=== PATIENT | male | born 1945 | race Caucasian/White ===

== ENCOUNTER → 2019-08-27 15:38 | Outpatient (CLI) | payer MEDICARE, OTHER, SELFPAY ==
--- NOTE | 2019-08-27 | DI.MRI.S_ITS ---
PROCEDURE: MR LUMBAR SPINE WO CON INDICATIONS: RADICULOPATH TECHNIQUE: Noncontrast sagittal T1 spin echo and T2 fast echo, sagittal STIR, axial T1 and T2 fast spin echo through the lumbar spine. In cases with scoliosis, additional coronal T2 fast spin echo may be performed. COMPARISON: [facility] [place] [facility], CR, XR LUMBAR SPINE FLEXION EXTENSION, 08/13/2019, 16:32. [facility], CR, XR LUMBAR SPINE 2 OR 3 VIEWS, 07/02/2019, 13:15. FINDINGS: Image quality: Excellent. Alignment and Curvature: There is grade 1 anterolisthesis of L5 on S1 measuring 6 mm. There is trace retrolisthesis of L1 on L2. Bone Marrow: Marrow is of normal overall signal. Schmorl's nodes are noted along the inferior endplates of T12, L1 and L5 as well as superior endplate of L2, L3 and L4. Moderate reactive endplate changes are present at L5-S1, minimal at L1-L2, L2-3, L3-4 and L4-5. No acute vertebral body compression fractures. Spinal Cord: Conus medullaris terminates at the L2 level. Visualized cord demonstrates normal signal and size. Paraspinous Soft Tissues: No paravertebral masses. Discs: Moderate to severe desiccation is present throughout the lumbar spine most severe at L5-S1. L1-L2: Minimal disc bulge without spinal stenosis. Mild bilateral foraminal narrowing with facet and ligamentum flavum hypertrophy. L2-L3: Mild disc bulge including a left foraminal component. There is hfkd-lq-pqokzprx spinal stenosis. Moderate to severe left and moderate right foraminal narrowing with facet and ligamentum flavum hypertrophy. L3-L4: Mild disc bulge including a left lateral/foraminal component. Minimal to mild spinal stenosis. Severe left and moderate to severe right foraminal narrowing with facet and ligamentum flavum hypertrophy. L4-L5: Mild disc bulge with superimposed protrusion/extrusion in the left posterior paracentral location. In addition, prominent area of ligamentum flavum hypertrophy is noted along the anterior aspect of the right facet joint, projecting to the proximal right foraminal. There is mild compromise of the left lateral recess. There is severe right foraminal narrowing with nerve root compression as well as mild to moderate left foraminal narrowing. L5-S1: Mild disc bulge without spinal stenosis. Severe bilateral foraminal narrowing with nerve root flattening, right greater than left. Facet hypertrophy is present. IMPRESSION: 1. Significant multilevel degenerative changes. 2. Severe foraminal narrowing is present from L3-4 through L5-S1 secondary to anterolisthesis as well as facet/ligamentum flavum arthropathy as above. Dictated by: Erma Hanson M.D. on 08/27/2019 at 17:30 Approved by: Erma Hanson M.D. on 08/27/2019 at 17:36
== END ==
PROVIDERS: Referring Provider Orthopaedic Surgery; Visit Provider Orthopaedic Surgery
DX: M47.26 Other spondylosis with radiculopathy, lumbar region (principal); M47.27 Other spondylosis with radiculopathy, lumbosacral region; M48.061 Spinal stenosis, lumbar region without neurogenic claudication; M48.07 Spinal stenosis, lumbosacral region; M43.17 Spondylolisthesis, lumbosacral region
CPT/HCPCS: 72148

== ENCOUNTER → 2020-01-06 10:37 | Outpatient (CLI) | payer MEDICARE, OTHER, SELFPAY ==
--- NOTE | 2020-01-06 11:24 | DI.CT.S_ITS ---
PROCEDURE: CT LUMBAR SPINE WO CON INDICATIONS: Radiculopathy, lumbar region TECHNIQUE: Noncontrast 3 mm thick sections acquired from the T12 level to the sacrum. Sagittal and coronal reformats were constructed. For radiation dose reduction, the following was used: automated exposure control. COMPARISON: [facility], CR, XR LUMBAR SPINE 2 OR 3 VIEWS, 07/02/2019, 13:15. [facility], MR, MR LUMBAR SPINE WO CON, 08/27/2019, 16:02. FINDINGS: Image quality: Excellent. Bones: No acute vertebral body compression fractures. Several Schmorl's nodes can be seen at the endplates. No suspicious lytic or blastic bony lesions. Mild dextroconvex scoliotic curvature is seen. Grade 1 anterolisthesis is seen at the L5-S1 level. Bilateral L5 pars defects are seen. T12-L1: Moderate loss of disc height is seen. Mild to moderate disc bulge is seen. No significant neural foraminal or central canal narrowing can be seen. L1-L2: The disc height is well preserved. Mild generalized disc bulge is seen. Mild bilateral neural foraminal narrowing is seen. No significant central canal narrowing is seen. L2-L3: The disc height is well preserved. Moderate disc bulge is seen, which is eccentric to the left. There is moderate left-sided and htsc-kq-pfyonlit right-sided neural foraminal narrowing seen. Moderate central canal narrowing is seen. L3-L4: The disc height is relatively well preserved. Moderate generalized disc bulge is seen. Relatively prominent bridging anterior osteophytes are seen. There is at least moderate bilateral neural foraminal narrowing seen. Moderate to severe central canal narrowing is seen. Apparent remote left hemilaminotomy can be seen. Please correlate with patient history. L4-L5: The disc height is well preserved. Vacuum disc phenomenon is seen at this level. At least moderate disc bulge is seen, which is eccentric to the right. There is moderate to prominent bilateral neural foraminal narrowing seen, right worse than left. Moderate to severe central canal narrowing is also seen. Postoperative change is seen at this level, with prior left hemilaminotomy. L5-S1: Moderate to severe loss of disc height is seen. Vacuum disc phenomenon is seen at this level. Endplate irregularity and sclerosis can be seen. Moderate generalized disc bulge is seen. Moderate to severe bilateral neural foraminal narrowing can be seen. Mild central canal narrowing is seen. Soft tissues: No retroperitoneal masses or hematomas. Visualized aorta is normal in caliber. Atherosclerotic calcification is noted. Partial calcification of the right adrenal gland can be seen. There is a right adrenal nodule seen that measures 2.3 cm and -7 Hounsfield units. IMPRESSION: Multiple levels of relatively prominent lumbar spine degenerative change are seen. At L5-S1, there is grade 1 anterolisthesis, with associated bilateral pars defects. Moderate to severe bilateral neural foraminal narrowing can be seen at this level. The degenerative changes are similar to the recent prior lumbar CT. 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 on 01/06/2020 at 10:57 Approved by: Sánchez Curran M.D. on 01/06/2020 at 11:03
== END ==
PROVIDERS: Referring Provider Neurological Surgery; Visit Provider Neurological Surgery
DX: M47.26 Other spondylosis with radiculopathy, lumbar region (principal); M43.16 Spondylolisthesis, lumbar region; M48.07 Spinal stenosis, lumbosacral region; D35.01 Benign neoplasm of right adrenal gland; E27.49 Other adrenocortical insufficiency
CPT/HCPCS: 72131

== ENCOUNTER → 2020-02-03 11:07 | Outpatient (CLI) | payer MEDICARE, OTHER, SELFPAY ==
[2020-02-03 13:03] LABS: Hemoglobin A1C% w Est Avg Glu 6.9 % (4.0-6.0)
[2020-02-03 13:49] LABS: Add Manual Diff / Slide Review NO; Basophils Absolute Auto 100 /uL (0-100); Basophils Percent Auto 0.7 % (0-2); Eosinophils Absolute Auto 300 /uL (0-450); Hematocrit 44.2 % (41-53); Lymphocytes Absolute Auto 2400 /uL (1100-4500); Mean Corpuscular HGB Conc 33.9 % (30-36); Mean Corpuscular Hemoglobin 30.2 PG (26-34); Mean Corpuscular Volume 89.1 fL (80-100); Monocytes Absolute Auto 500 /uL (0-900); Monocytes Percent Auto 6.3 % (3-14); Neutrophils Absolute Auto 5000 /uL (1500-7000); Platelet Count 208 X10^3/uL (150-400); Red Blood Cell Count 4.96 X10^6/uL (4.5-5.9); Red Cell Distribution Width 12.7 % (11.6-14.8); White Blood Cell Count 8.4 X10^3/uL (4.5-11.0)
[2020-02-03 14:05] LABS: Alanine Aminotransferase 13 IU/L (<50); Albumin 4.3 g/dL (3.5-5.0); Albumin Globulin Ratio 1.6 (1.0-2.8); Alkaline Phosphatase 70 U/L (38-126); Aspartate Aminotransferase 23 IU/L (17-59); Bilirubin Total 0.7 mg/dL (0.2-1.3); Blood Urea Nitrogen 22 mg/dL (9-20); Carbon Dioxide 29 mmol/L (22-32); Chloride 102 mmol/L (98-107); Estimated Glomerular Filt Rate > 60.0 mL/min (>60); Globulin 2.7 g/dL (1.7-4.1); Glucose 154 mg/dL (80-110); HEMOLYSIS < 15 (0-50); Potassium 4.6 mmol/L (3.4-5.1); Sodium 136 mmol/L (137-145)
[2020-02-03 14:36] LABS: Prostate Specific Antigen < 0.064 ng/mL (0.10-4.00)
== END ==
PROVIDERS: PCP Nurse Practitioner Family; Referring Provider Neurological Surgery; Visit Provider Neurological Surgery
DX: Z01.812 Encounter for preprocedural laboratory examination; C61 Malignant neoplasm of prostate; E11.9 Type 2 diabetes mellitus without complications
CPT/HCPCS: 36415; 80053; 83036; 84153; 85025

== ENCOUNTER → 2020-03-29 13:29 | Outpatient (CLI) | payer MEDICARE, OTHER, SELFPAY ==
[2020-03-29 16:26] LABS: COVID19 -Nasal RAPID Negative (Negative)
== END ==
PROVIDERS: PCP Nurse Practitioner Family; Visit Provider Physician Assistant
DX: Z01.812 Encounter for preprocedural laboratory examination (principal); Z20.822 Contact with and (suspected) exposure to COVID-19
CPT/HCPCS: 87635; C9803

== ENCOUNTER 2020-03-31 12:14 | Day surgery (SDC) | payer MEDICARE, OTHER, SELFPAY ==
--- NOTE | 2020-03-31 | PATH_ITS ---
[facility] Accession Number: [id number] . 01 Material submitted: . esophagus - DISTAL ESOPHAGUS . 01 Clinical history: . A: R/O KAY'S . 02 Diagnosis: Distal Esophagus: Squamocolumnar junctional mucosa with patchy regions of mildly increased intraepithelial eosinophils (up to approximately 11 per high-power field). Please see comment. Negative for intestinal metaplasia by alcian blue stain. Negative for dysplasia and malignancy. MRV 04/05/2020 1449 Local . 02 Comment: In the proper clinical setting, the histopathologic appearance would support a clinical impression of drug reaction, gastroesophageal reflux, and food allergies. . 02 Electronically signed: . Alla Kimbrough MD, Pathologist NPI- [id number] . 01 Gross description: . DISTAL ESOPHAGUS: Received in formalin is 1 fragment(s) of almeida, soft tissue measuring 0.1 x 0.1 x 0.1 cm submitted entirely in 1 cassette(s) /SAMANTHA 04/01/2020 1927 Local . 02 Pathologist provided ICD-10: K20.90 . 02 CPT . 861608, [id number] Performed at: 01 [facility] [address], [place], [place] [id number] MD Roberto Grove MD Phone: [phone] Performed at: 02 [facility] [address] [place], [place] [id number] MD Charity Chong MD Phone: [phone]
[2020-03-31 12:40] VITALS: BP 179/85; PULSE 63; RESP 18; TEMP 36.8; O2SAT 99; BMI 26.1
[2020-03-31] MEDS: fentaNYL 250 MCG/5 ML INJ IV (13:42)
[2020-03-31] MEDS: MIDAZOLAM 5 MG/5 ML VIAL IV (13:49)
--- NOTE | 2020-03-31 13:57 | PM.PREOP ---
Pre-operative Note COVID-19 COVID-19 status: Negative Interval Note History & Physical reviewed/Exam performed by Physician: Yes Changes to H&P: No ASA Class (for procedural sedation): II
--- NOTE | 2020-03-31 13:58 | PM.OP.ENDO ---
Operative Date/Time/Diagnoses Date of procedure: 03/31/20 Pre-op diagnosis: See indication and findings Procedure & Clinicians Study performed: EGD with possible dilation Same procedure as scheduled: Yes Indications: Dysphagia Surgeon: Mook Alvarez Procedure Notes Procedure in detail: After informed consent was obtained the patient was placed in left lateral decubitus position. The video upper scope placed into the oropharynx and with the patient's help swallowed into the esophagus. The esophagus, stomach, duodenum were carefully examined. On withdrawal, retroflexed view of the GE junction was performed. The scope was removed. The patient of the procedure well. Blood loss none Complications none Sedation Total sedation time 11 minutes Fentanyl 100 mg Versed 5 mg IV titration Findings 1. Distal esophagus with 2 small tongues of tissue coming up above the squamocolumnar junction/gastric folds less than 1 cm. Both were biopsied to rule out Edwards's. 2. Mild Schatzki's ring present. This was dilated to [address] [place] 3. Normal stomach 4. Normal duodenal bulb and sweep We will merely see how GRE dozen will send the results of his biopsies. This is present he should have follow-up in 3 years.
[2020-03-31 13:59] VITALS: BP 111/56; PULSE 49; RESP 12; TEMP 36.8; O2SAT 97
[2020-03-31 14:04] VITALS: BP 111/57; PULSE 49; RESP 9; O2SAT 97
[2020-03-31 14:08] VITALS: BP 108/57; PULSE 50; RESP 12; O2SAT 97
[2020-03-31 14:27] VITALS: BP 120/64; PULSE 53; RESP 14; TEMP 36.9; O2SAT 99
[2020-03-31 14:55] VITALS: BP 118/56; PULSE 56; RESP 16; TEMP 37.1; O2SAT 99
== END 2020-03-31 15:05 | disposition home or self-care (01) ==
PROVIDERS: PCP Nurse Practitioner Family; Referring Provider Nurse Practitioner Family; Visit Provider Internal Medicine Gastroenterology
PROC: 0DJ08ZZ Inspection of Upper Intestinal Tract, Via Natural or Artificial Opening Endoscopic (ICD-10-PCS; CPT 43235; principal; 2020-03-31 13:30)
DX: K22.2 Esophageal obstruction (principal); E11.9 Type 2 diabetes mellitus without complications; E03.9 Hypothyroidism, unspecified; Z79.84 Long term (current) use of oral hypoglycemic drugs; K20.90 Esophagitis, unspecified without bleeding
CPT/HCPCS: 43239; J2250; J3010

== ENCOUNTER → 2020-08-26 13:51 | Outpatient (CLI) | payer MEDICARE, OTHER, SELFPAY ==
--- NOTE | 2020-08-26 13:52 | DI.MRI.S_ITS ---
PROCEDURE: MR CERVICAL SPINE WO CON INDICATIONS: Other spondylosis Occlusion and stenosis TECHNIQUE: Noncontrast sagittal T1 spin echo and T2 fast spin echo, sagittal STIR, foraminal oblique sagittal T2 fast spin echo, and axial gradient echo or T2 fast spin echo through the cervical spine. COMPARISON: [facility], CR, XR CERVICAL SPINE 2 OR 3 VIEWS, 08/13/2020, 15:16. FINDINGS: Image quality: Excellent. Alignment and Curvature: There is normal bony alignment. Bone Marrow: Reactive endplate changes noted adjacent to the C5-C6 and C6-C7 discs. Spinal Cord: Visualized spinal cord has normal size and signal. No cerebellar tonsillar herniation. Paraspinous Soft Tissues: No paravertebral masses. Prevertebral soft tissues are normal in thickness. C2-C3: Loss of disc signal. No central stenosis. Mild bilateral facet hypertrophy. Mild bilateral neural foraminal narrowing. No neural compression. C3-C4: Loss of disc signal and slight loss of disc height. Mild, diffuse disc bulge. Gtll-vq-yyimaany narrowing of the central canal. Moderate right and mild left facet hypertrophy. Severe bilateral neural foraminal narrowing with compression of the exiting C4 nerve roots. C4-C5: Loss of disc signal. Mild bilateral facet hypertrophy. No central stenosis. Moderate bilateral neural foraminal narrowing. No neural compression. C5-C6: Loss of disc signal and height. Mild to moderate diffuse disc bulge. Mild bilateral facet hypertrophy. Moderate to severe narrowing of the central canal. Mild bilateral facet hypertrophy. Moderate bilateral uncovertebral joint hypertrophy. Severe bilateral neural foraminal narrowing with compression of the exiting C6 nerve roots. C6-C7: Loss of signal and height. Moderate, diffuse disc bulge. Moderate narrowing of the central canal. Mild bilateral facet hypertrophy. Moderate bilateral uncovertebral joint hypertrophy. Severe bilateral neural foraminal narrowing with compression of the exiting C7 nerve roots. C7-T1: Loss of disc signal. Mild, diffuse disc bulge. No central stenosis. No neural foraminal narrowing. No neural compression. IMPRESSION: 1. Multilevel degenerative disc disease. 2. Multilevel facet and uncovertebral arthropathy. 3. Moderate to severe C5-C6 central canal narrowing. 4. Severe bilateral C3-C4, C5-C6 and C6-C7 neural foraminal narrowing with compression of the exiting bilateral C4, C6 and C7 nerve roots. Dictated by: Bettina Cochran MD, PhD on 08/26/2020 at 15:06 Approved by: Bettina Cochran MD, PhD on 08/26/2020 at 15:23
--- NOTE | 2020-08-26 13:53 | DI.US.S_ITS ---
PROCEDURE: US CAROTID DOPPLER BI INDICATIONS: STENOSIS TECHNIQUE: Color and pulse Doppler interrogation was performed of both carotid systems, with image documentation and velocity measurements. COMPARISON: None. FINDINGS: Stenosis calculations are based on SRU (Society of Radiologists in Ultrasound) criteria. Right side: Brachial blood pressure: 141/61 mm Hg. Common carotid artery peak systolic velocity: 92 cm/sec. Internal carotid artery peak systolic velocity: 101 cm/sec. Internal carotid artery end diastolic velocity: 24 cm/sec. External carotid artery peak systolic velocity: 134 cm/sec. ICA/CCA peak systolic ratio: 1.1 . Leslie scale imaging description: Moderate scattered plaque. Percent internal carotid artery stenosis: Less than 50% Vertebral artery: Not visualized. Left side: Brachial blood pressure: 123/59 mm Hg. Common carotid artery peak systolic velocity: 97 cm/sec. Internal carotid artery peak systolic velocity: 118 cm/sec. Internal carotid artery end diastolic velocity: 19 cm/sec. External carotid artery peak systolic velocity: 134 cm/sec. ICA/CCA peak systolic ratio: 1.2 . Leslie scale imaging description: Moderate scattered plaque. Percent internal carotid artery stenosis: Less than 50% . Vertebral artery: Flow direction is antegrade. IMPRESSION: Less than 50% bilateral internal carotid artery stenosis. Dictated by: Osmar Garrett [facility] Interpreted: Erma Hanson MD on 08/26/2020 at 15:27 Transcribed by: ANKUR on 08/26/2020 at 15:29 Approved by: Erma Hanson M.D. on 08/26/2020 at 18:59
== END ==
PROVIDERS: PCP Nurse Practitioner Family; Referring Provider Nurse Practitioner Family; Visit Provider Nurse Practitioner Family
DX: M47.892 Other spondylosis, cervical region (principal); I65.23 Occlusion and stenosis of bilateral carotid arteries; M50.31 Other cervical disc degeneration, high cervical region; M48.02 Spinal stenosis, cervical region; M47.812 Spondylosis without myelopathy or radiculopathy, cervical region
CPT/HCPCS: 72141; 93880